=== PATIENT | male | born 1950 | race Caucasian/White ===

== ENCOUNTER 2017-11-06 05:26 | Emergency (ER) | payer MEDICARE ==
[~2017-11-06] VITALS: Ht 182.9 cm; Wt 162.0 kg
[~2017-11-06 05:26] MED LIST: CEPH500C5 PO; HYDR-569 PO; SULF1TAB49 PO
[2017-11-06] MEDS ORDERED: MUPI22OI30 TOP (06:47)
[2017-11-06 06:56] VITALS: BP 146/89
== END 2017-11-06 06:57 | disposition home or self-care (01) ==
LOC: ER 05:27
DX: L02.414 Cutaneous abscess of left upper limb (principal); Z79.899 Other long term (current) drug therapy
CPT/HCPCS: 99283; A6251; A6449